=== PATIENT | female | born 1970 | race Hispanic/Latino ===

== ENCOUNTER → 2017-11-05 | Outpatient (CLI) | payer OTHER | END | disposition home or self-care (01) | LOC: OIH 13:52 | PROVIDERS: ATTEND Internal Medicine Cardiovascular Disease | DX: Z13.6 Encounter for screening for cardiovascular disorders (principal) | CPT/HCPCS: 75571 ==

== ENCOUNTER 2025-03-27 21:05 | Emergency (ER) | payer BC ==
[~2025-03-27] VITALS: Ht 167.6 cm; Wt 115.7 kg
--- NOTE | 2025-03-27 21:09 | NUR ---
UA CUP PROVIDED
[2025-03-27 21:32] LABS: IMMATURE GRANULOCYTE ABSOLUTE 0.12 K/uL (0-1); NUCLEATED RED BLOOD CELLS 0.0 % (0.0-0.19); PLATELET COUNT (AUTO) 393 K/uL (130-400); RED BLOOD CELL COUNT(AUTO) 4.62 MIL/uL (4.00-5.50); RED CELL DISTRIBUTION WIDTH 17.2 % (11.0-15.5); WHITE BLOOD COUNT (AUTO) 12.3 K/uL (4.8-10.8)
[2025-03-27 21:37] LABS: APPEARANCE,URINE CLEAR (CLEAR); GLUCOSE, URINE (UA) NEGATIVE (NEGATIVE); HCG,QUALITATIVE URINE NEGATIVE (NEGATIVE); LEUKOCYTE ESTERASE ,URINE NEGATIVE Leu/uL (NEGATIVE); NITRATE,URINE NEGATIVE (NEGATIVE); OCCULT BLOOD,URINE NEGATIVE (NEGATIVE)
[2025-03-27 21:42] LABS: ADD UA MICROSCOPIC NO
[2025-03-27 21:48] LABS: CREATININE 0.8 mg/dL (0.5-1.0); GLOMERULAR FILTR. RATE CALC 86.0 mL/min (>90); GLUCOSE,RANDOM 103.0 mg/dL (70-105); SODIUM SERUM 141.0 mmol/L (136-145); UREA NITROGEN, BLOOD 8.0 mg/dL (7-18)
[2025-03-27 21:53] LABS: CREATINE KINASE, TOTAL 87.0 U/L (21-232)
--- NOTE | 2025-03-27 21:57 | EKG ---
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
--- NOTE | 2025-03-27 22:24 | HMCIMG ---
EXAM: CR Chest, 1 view CLINICAL HISTORY: Chest pain. COMPARISON: None provided. FINDINGS: The lungs show no infiltrates or other acute findings. No pleural effusion or pneumothorax. The cardiomediastinal silhouette is within normal limits. No acute osseous abnormality. IMPRESSION: No acute cardiopulmonary process is evident. /[place]
--- NOTE | 2025-03-27 23:50 | ERN ---
General Chief Complaint: Chest Pain Stated Complaint: CHEST PAIN Time Seen by MD: 21:08 History of Present Illness Initial Comments 54 y/o female came in for chest pain. Allergies: Coded Allergies: No Known Drug Allergies (Unverified Allergy, Unknown, 11/16/13) Past Medical History Past Medical History: Hypertension Past Surgical History: Cholecystectomy ROS Dictation Chest pain Physical Exam General Appearance: (+) no apparent distress Neck: (+) normal inspection, (+) supple Respiratory: (+) chest non-tender, (+) lungs clear Heart: (+) regular, (+) no gallop Vascular: (+) no edema Gastrointestinal: (+) soft, (+) non-tender, (+) no organomegaly, (+) bowel sound present Back: (+) normal inspection Results Laboratory and Microbiology Lab and Micro Result Laboratory Tests Test 03/27/25 21:16 03/27/25 21:17 03/27/25 23:15 White Blood Count 12.3 K/uL (4.8-10.8) H Red Blood Count 4.62 MIL/uL (4.00-5.50) Hemoglobin 13.5 g/dL (12.0-16.0) Hematocrit 38.0 % (36-48) Mean Corpuscular Volume 82.3 fL (79-99) Mean Corpuscular Hemoglobin 29.2 pg (27.0-33.0) Mean Corpuscular Hemoglobin Concent 35.5 g/dL (32.0-36.0) Red Cell Distribution Width 17.2 % (11.0-15.5) H Platelet Count 393 K/uL (130-400) Mean Platelet Volume 10.4 fL (7.5-10.5) Immature Granulocyte % (Auto) 1.0 % (0-1) Neutrophils (%) (Auto) 61.3 % (40.0-77.0) Lymphocytes (%) (Auto) 29.8 % (21.0-51.0) Monocytes (%) (Auto) 5.0 % (3.0-13.0) Eosinophils (%) (Auto) 2.3 % (0.0-8.0) Basophils (%) (Auto) 0.6 % (0.0-5.0) Neutrophils # (Auto) 7.6 K/uL (1.8-7.7) Lymphocytes # (Auto) 3.7 K/uL (1.0-4.8) Monocytes # (Auto) 0.6 K/uL (0.1-1.0) Eosinophils # (Auto) 0.28 K/uL (0.00-0.70) Basophils # (Auto) 0.07 K/uL (0.00-0.20) Absolute Immature Granulocyte (auto 0.12 K/uL (0-1) Nucleated Red Blood Cells 0.0 % (0.0-0.19) Sodium Level 141 mmol/L (136-145) Potassium Level 4.0 mmol/L (3.5-5.1) Chloride Level 106 mmol/L (101-111) Carbon Dioxide Level 31 mmol/L (21-32) Blood Urea Nitrogen 8 mg/dL (7-18) Creatinine 0.8 mg/dL (0.5-1.0) Glomerular Filtration Rate Calc 86 mL/min (>90) Random Glucose 103 mg/dL (70-105) Total Calcium 9.0 mg/dL (8.5-10.1) Total Creatine Kinase 87 U/L (21-232) Troponin I High Sensitivity 5 ng/L (4-50) 5 ng/L (4-50) Urine Color COLORLESS (YELLOW) Urine Appearance CLEAR (CLEAR) Urine pH 6.5 (5.0-8.0) Urine Specific [place] 1.004 (1.001-1.031) Urine Protein NEGATIVE mg/dL (NEGATIVE) Urine Glucose (UA) NEGATIVE mg/dL (NEGATIVE) Urine Ketones NEGATIVE mg/dL (NEGATIVE) Urine Occult Blood NEGATIVE (NEGATIVE) Urine Nitrate NEGATIVE (NEGATIVE) Urine Bilirubin NEGATIVE mg/dL (NEGATIVE) Urine Urobilinogen 0.2 mg/dL (0.2-1.0) Urine Leukocyte Esterase NEGATIVE [place]/uL Urine HCG, Qualitative NEGATIVE (NEGATIVE) MDM Pt feels better and to follow up with primary care physician ED Course Orders Procedure Category Date Status Time Vital Signs Per CPOE 03/27/25 Transmitted Routine 21:06 Chest 1vw RAD 03/27/25 Resulted 21:06 12 Lead Ekg Tracing- EKG 03/27/25 Complete Technical 21:06 Oxygen By Nc/Pulse Ox CPOE 03/27/25 Transmitted 21:06 Maintain Iv CPOE 03/27/25 Transmitted 21:06 Iv Insertion CPOE 03/27/25 Transmitted 21:06 Cardiac Monitoring CPOE 03/27/25 Transmitted 21:06 Pulse Oximetry With CPOE 03/27/25 Transmitted Vs And Prn 21:06 Cbc With Differential LAB 03/27/25 Complete 21:06 Activity: Br W/Brp CPOE 03/27/25 Transmitted With Assist 21:06 Creatine Kinase, Total LAB 03/27/25 Complete 21:06 Troponin I High LAB 03/27/25 Complete Sensitivity 21:06 Urinalysis Profile LAB 03/27/25 Complete 21:06 Basic Metabolic Panel LAB 03/27/25 Complete 21:06 ,Urine Test LAB 03/27/25 Complete 21:06 Troponin I High LAB 03/27/25 Complete Sensitivity 22:32 Vital Signs Date Time Temp Pulse Resp B/P (MAP) Pulse Ox O2 Delivery O2 Flow Rate FiO2 03/27/25 21:05 98.1 74 18 163/86 98 Room Air DX & DISP Disposition: Discharge Departure Impression: Primary Impression: Chest pain Condition: Stable Referrals: SELF,REFERRAL (PCP) DEBORAH HARRINGTON MD Mar 27, 2025 23:50
[2025-03-28 00:04] VITALS: BP 139/78; PULSE 72; RESP 18; TEMP 98; O2SAT 99
== END 2025-03-28 00:04 | disposition home or self-care (01) ==
LOC: EDH 21:05
DX: I10 Essential (primary) hypertension (principal); Z90.49 Acquired absence of other specified parts of digestive tract
CPT/HCPCS: 36415; 71045; 80048; 81003; 81025; 82550; 84484; 85025; 93005; 99285